=== PATIENT | male | born 2000 | race American Indian/Alaskan Native ===

== ENCOUNTER 2019-05-30 21:04 | Emergency (ER) | payer SELFPAY ==
--- NOTE | 2019-05-31 00:26 | Emergency Department Report ---
Minor Respiratory - HPI Chief Complaint: Upper Respiratory Infection Stated Complaint: THROAT PAIN/COLD SX/HEARTBURN Time Seen by Provider: 05/30/19 22:50 Duration: 4 Days Pain Location: Throat Severity: mild Minor Respiratory: Yes Rhinorrhea, Yes Sore Throat, Yes Able to Tolerate Fluids, Yes Cough, No Ear Pain, No Sick Contacts, No Hemoptysis, No Chest Pain, No Shortness of Breath, No Fever Other History: His 18-year-old male presents to ED complaining of throat pain and coughing indigestion for the past 4 days. Suggested ibuprofen that didn't help. Patient denies fevers/chills/nausea vomiting or abdominal pain or shortness of breath ED Review of Systems ROS: Stated complaint: THROAT PAIN/COLD SX/HEARTBURN Other details as noted in HPI Comment: All other systems reviewed and negative ED Past Medical Hx - Past Medical History Previous Medical History?: No - Surgical History Past Surgical History?: No - Social History Smoking Status: Never Smoker Substance Use Type: Marijuana - Medications Home Medications: Home Medications Medication Instructions Recorded Confirmed Last Taken Type Amoxicillin [Trimox CAP] 500 mg PO Q8H #7 capsule 05/31/19 Unknown Rx Benzonatate [Tessalon Perles] 100 mg PO Q8HR #20 capsule 05/31/19 Unknown Rx Butalb/Acetaminophen/Caffeine 1 cap PO Q8HR PRN #30 cap 05/31/19 Unknown Rx [Fioricet 50-300-40 mg CAP] Nystas/Diphen/Xyl Visc/Mylanta 15 ml MM Q6H PRN #120 ml 05/31/19 Unknown Rx [Magic Mouthwash] Minor Respiratory Exam - Exam General: Vital signs noted. No distress. Alert and acting appropriately. HEENT: Yes Moist Mucous Membranes, No Pharyngeal Erythema, No Pharyngeal Exudates, No Rhinorrhea, No Conjuctival Injection, No Frontal Tenderness, No Maxillary Tenderness Ear: Neither TM Bulge, Neither TM Erythema, Neither EAC Pain, Neither EAC Discharge Neck: Yes Supple, No Adenopathy Lungs: Yes Good Air Exchange, No Wheezes, No Ronchi, No Stridor, No Cough, No Labored Respirations, No Retractions, No Use of Accessory Muscles, No Other Abnormal Lung Sounds Heart: Yes Regular, No Murmur Abdomen: Yes Normal Bowel Sounds, No Tenderness, No Peritoneal Signs Skin: No Rash, No Edema Neurologic: Alert and oriented, no deficits. Musculoskeletal: Unremarkable. ED Course Vital Signs 05/30/19 21:28 Temperature 98.6 F Pulse Rate 81 Respiratory 20 Rate Blood Pressure 128/78 O2 Sat by Pulse 95 Oximetry ED Medical Decision Making - Medical Decision Making 18 year-old male presents with upper respiratory infection/pharyngitis Discussed with mother symptomatic relief with [id number] medications. Discussed continue Tylenol and Motrin as needed for fever and pain. Discussed increase fluids and diet intake. Discussed rest much needed. Discussed follow-up with [facility] physician in 3-5 days. Patient verbally states she understands and will comply the following instructions and follow-up Vital signs stable. Patient is in no acute distress Critical care attestation.: If time is entered above; I have spent that time in minutes in the direct care of this critically ill patient, excluding procedure time. ED Disposition Clinical Impression: Upper respiratory infection, Pharyngitis Disposition: - TO HOME OR SELFCARE Is pt being admited?: No Does the pt Need Aspirin: No Condition: Stable Instructions: Upper Respiratory Infection (ED), Cold Symptoms (ED) Additional Instructions: Make sure to follow up with the primary care physician as discussed. Take all your medications as you've been prescribed. If you have any worsening symptoms or develop new symptoms please return to ED immediately. Referrals: PRIMARY CARE, [Primary Care Provider] - 3-[address] [facility] [Outside] - 3-5 Days [facility] [Outside] - 3-5 Days Forms: Work/School Release Form(ED) Time of Disposition: 00:26
[2019-05-31 00:36] VITALS: BP 128/83
== END 2019-05-31 00:35 | disposition home or self-care (01) ==
LOC: ED 21:04
DX: J06.9 Acute upper respiratory infection, unspecified (principal); J02.9 Acute pharyngitis, unspecified; F12.10 Cannabis abuse, uncomplicated